=== PATIENT | male | born 2000 | race Caucasian/White ===

== ENCOUNTER 2018-12-03 15:51 | Emergency (ER) | payer MEDICAID, OTHER ==
[2018-12-03 16:02] VITALS: BP 146/84; TEMP 98.4
[2018-12-03] MEDS ORDERED: Sodium Chloride 0.9% 1,000 ML IV STA (16:12)
[2018-12-03 16:35] LABS: BASO # 0.1 K/uL (0.0-0.2); BASO % 1.3 % (0.0-2.0); EOS # 0.4 K/uL (0.0-0.7); EOS % 3.7 % (0.0-4.0); HEMOGLOBIN 16.8 g/dL (12.0-18.0); LYMPH # 2.2 K/uL (1.0-4.3); LYMPH % 21.6 % (20.0-40.0); MEAN CELL VOLUME 83.8 fl (80.0-94.0); MEAN CORPUSCULAR HEMOGLOBIN 29.2 pg (27.0-31.0); MEAN CORPUSCULAR HGB CONC 34.9 g/dL (33.0-37.0); MEAN PLATELET VOLUME 9.9 fl (7.2-11.7); MONO # 0.5 K/uL (0.0-0.8); MONO % 4.6 % (0.0-10.0); NEUT # 6.9 K/uL (1.8-7.0); NEUT % 68.8 % (50.0-75.0); NRBC % 0.1 % (0.0-0.0); RBC 5.76 Mil/uL (4.40-5.90)
[2018-12-03 16:37] LABS: VENOUS BLOOD GAS BASE EXCESS -1.3 mmol/L (0.0-2.0); VENOUS BLOOD GAS PCO2 43 mmHg (40-60); VENOUS BLOOD GAS PO2 39 mm/Hg (30-55); VENOUS BLOOD PH 7.36 (7.32-7.43)
[2018-12-03] MEDS ORDERED: Insulin Regular 100 units/ml IVP STA (16:44)
[2018-12-03] MEDS ORDERED: Insulin Regular 100 units/ml SC STA (16:44)
[2018-12-03 17:01] LABS: B-TYPE NATRIURETIC PEPTIDE 14.8 pg/ml (0-450)
[2018-12-03] MEDS ORDERED: Insulin Regular 100 units/ml ONE (17:02)
[2018-12-03 17:09] LABS: ALB/GLOB RATIO 1.2 (1.0-2.1); ALT/SGPT 81 U/L (21-72); AST/SGOT 58 U/L (17-59); BLOOD UREA NITROGEN 13 mg/dl (9-20); CALCIUM 9.9 mg/dL (8.4-10.2); GFR NON-AFRICAN AMERICAN > 60
--- NOTE | 2018-12-03 17:27 | ED PDOC ---
Hyperglycemia/Hypoglycemia Time Seen by Provider: 12/03/18 16:02 Chief Complaint (Nursing): High Blood Sugar Chief Complaint (Provider): Hypoglycemia History Per: Patient History/Exam Limitations: no limitations Onset/Duration Of Symptoms: Sudden Onset Current Symptoms Are (Timing): Still Present Current Diabetic Medications: None Associated Infectious Symptoms: Urinary Frequency : The patient does not have any of the infectious symptoms listed except for those marked. Treatment Prior To Provider Evaluation: Accucheck Additional Complaint(s): 18 year old male with diabetes presents to the ED with hypoglycemia. Patient has been non-compliant with diabetic medication for one year. Patient states he lost weight, exercised and was on a diet. However, since the last couple of months, patient began to be less strict with diet and exercise. Last week, he reports of increased thirst and urination. His accucheck taken at home read high. Also reports of mild shortness of breath with excretion. Otherwise, patient denies chest pain, leg swelling, fever or recent infections illness. PMD: Dr. Kincaid Past Medical History Reviewed: Historical Data, Nursing Documentation, Vital Signs Vital Signs: Last Vital Signs Temp 98.4 F 12/03/18 15:58 Pulse 120 H 12/03/18 15:58 Resp 20 12/03/18 15:58 BP 146/84 12/03/18 15:58 Pulse Ox 95 12/03/18 15:58 - Medical History PMH: Diabetes - Surgical History Surgical History: No Surg Hx - Family History Family History: States: Diabetes, Hypertension - Social History Current smoker - smoking cessation education provided: No - Home Medications Home Medications: Ambulatory Orders Medication Instructions Recorded Ondansetron [Zofran Odt] 4 mg PO BID PRN #12 odt 09/27/14 Canagliflozin [Invokana] 300 mg PO DAILY #14 tablet 12/03/18 metFORMIN [glucOPHAGE] 500 mg PO BID #30 tab 12/03/18 - Allergies Allergies/Adverse Reactions: Allergies Allergy/AdvReac Type Severity Reaction Status Date / Time No Known Allergies Allergy Verified 12/03/18 15:58 Review of Systems ROS Statement: Except As Marked, All Systems Reviewed And Found Negative (As per HPI, otherwise negative) Constitutional: Negative for: Fever, Other (recent infectious illness) Cardiovascular: Negative for: Chest Pain Respiratory: Positive for: SOB with Exertion Musculoskeletal: Negative for: Other (leg swelling ) Physical Exam - Reviewed Nursing Documentation Reviewed: Yes Vital Signs Reviewed: Yes - Physical Exam Appears: Positive for: Well (Obese), No Acute Distress Head Exam: Positive for: ATRAUMATIC, NORMOCEPHALIC Skin: Positive for: Warm, Dry Eye Exam: Positive for: EOMI, PERRL ENT: Negative for: Pharyngeal Erythema, Tonsillar Exudate Neck: Positive for: Painless ROM, Supple Cardiovascular/Chest: Positive for: Tachycardia (regular rhythm) Respiratory: Positive for: Normal Breath Sounds. Negative for: Respiratory Distress Gastrointestinal/Abdominal: Positive for: Soft. Negative for: Tenderness Back: Positive for: Normal Inspection. Negative for: Muscle Spasm Extremity: Positive for: Normal ROM. Negative for: Deformity Lymphatic: Negative for: Adenopathy Neurological/Psych: Positive for: Awake, Alert. Negative for: Motor/Sensory Deficits - Laboratory Results Result Diagrams: 12/03/18 16:27 12/03/18 16:27 Lab Results: pO2 39 mm/Hg (30-55) 12/03/18 16:29 VBG pH 7.36 (7.32-7.43) 12/03/18 16:29 VBG pCO2 43 mmHg (40-60) 12/03/18 16:29 VBG HCO3 23.2 mmol/L 12/03/18 16:29 VBG Total CO2 25.6 mmol/L (22-28) 12/03/18 16:29 VBG O2 Sat (Calc) 77.4 % (40-65) H 12/03/18 16:29 VBG Base Excess -1.3 mmol/L (0.0-2.0) L 12/03/18 16:29 VBG Potassium 4.1 mmol/L (3.6-5.2) 12/03/18 16:29 Sodium 136.0 mmol/L (132-148) 12/03/18 16:29 Chloride 98.0 mmol/L (98-107) 12/03/18 16:29 Glucose 518 mg/dL (75-110) H* 12/03/18 16:29 Lactate 1.6 mmol/L (0.7-2.1) 12/03/18 16:29 FiO2 21.0 % 12/03/18 16:29 Crit Value Called To enrique Fuentes md 12/03/18 16:29 Crit Value Called By Ana M mireles 12/03/18 16:29 Crit Value Read Back Y 12/03/18 16:29 Blood Gas Notified Time 1637 12/03/18 16:29 Troponin I < 0.0120 ng/mL (0.00-0.120) 12/03/18 16:27 NT-Pro-B Natriuret Pep 14.8 pg/ml (0-450) 12/03/18 16:27 Total Bilirubin 1.5 mg/dl (0.2-1.3) H 12/03/18 16:27 AST 58 U/L (17-59) 12/03/18 16:27 ALT 81 U/L (21-72) H 12/03/18 16:27 Alkaline Phosphatase 100 U/L (38-126) 12/03/18 16:27 Total Protein 9.0 G/DL (6.3-8.2) H 12/03/18 16:27 Albumin 5.0 g/dL (3.5-5.0) 12/03/18 16:27 Globulin 4.0 gm/dL (2.2-3.9) H 12/03/18 16:27 Albumin/Globulin Ratio 1.2 (1.0-2.1) 12/03/18 16:27 - ECG O2 Sat by Pulse Oximetry: 95 (RA) Pulse Ox Interpretation: Normal Medical Decision Making Medical Decision Making: Time: 1609 Initial Impression: hypoglycemia Differential Diagnosis includes but is not limited to: DKA, electrolyte abnormalities, dehydration, renal insufficiency Initial Plan: --Venous blood gas shock panel --B-type natriuretic peptide --CMP --Magnesium --Phosphorus --Troponin --ED urine dipstick --CBC w/ differential --HumuLIN R 10 units --Normal saline 1000 mls/hr --IV insertion --Reevaluation Labs with demonstrate normal anion gap, with no acidosis. Udip with ketosis While in ER, glucose improved with fluids and insulin. Stable for discharge with urgent PMD followup and restart of diabetes medications as well as lifestyle modifications. Scribe Attestation: Documented by Bright Wang, acting as a scribe for Enrique Fuentes MD Provider Scribe Attestation: All medical record entries made by the Scribe were at my direction and personally dictated by me. I have reviewed the chart and agree that the record accurately reflects my personal performance of the history, physical exam, medical decision making, and the department course for this patient. I have also personally directed, reviewed, and agree with the discharge instructions and disposition. Disposition - Clinical Impression Clinical Impression: Hyperglycemia Counseled Patient/Family Regarding: Studies Performed, Diagnosis, Need For Follo wup, Rx Given - Disposition Referrals: Joshua Kincaid MD [Staff Provider] - 12/05/18 Disposition: Routine/Home Disposition Time: 19:30 Condition: IMPROVED Additional Instructions: STRICT DIABETIC DIET WITH PLENTY OF WATER Prescriptions: Canagliflozin [Invokana] 300 mg PO DAILY #14 tablet metFORMIN [glucOPHAGE] 500 mg PO BID #30 tab Instructions: Hyperglycemia, Adult (DC), Diabetes and Diet
[2018-12-03 20:21] VITALS: PULSE 99; RESP 18
[2018-12-03 20:22] VITALS: O2SAT 95
== END 2018-12-03 20:20 | disposition home or self-care (01) ==
LOC: H.ER 15:51
DX: E11.65 Type 2 diabetes mellitus with hyperglycemia (principal); E88.89 Other specified metabolic disorders; Z79.4 Long term (current) use of insulin
CPT/HCPCS: 80053; 82803; 82948; 83735; 83880; 84100; 84484; 85025; 96372; 96374; 99285; J7030